=== PATIENT | female | born 1995 | race Caucasian/White ===

== ENCOUNTER 2018-08-08 17:40 | Emergency (ER) | payer OTHER ==
[~2018-08-08] VITALS: Ht 154.9 cm; Wt 56.2 kg
[2018-08-08 17:59] VITALS: Ht 154.9 cm; Wt 56.2 kg
[2018-08-08 19:38] LABS: BASOPHIL % 0.2 % (0-2); PLATELET COUNT 329 x10^3mcL (130-400); RED CELL DISTRIBUTION WIDTH 13.5 % (11.5-14.5)
[2018-08-08 19:49] LABS: microscopic required? YES; urine erythrocyte 1+ (NEGATIVE)
[2018-08-08 21:10] VITALS: BP 135/77
== END 2018-08-08 21:10 | disposition home or self-care (01) ==
LOC: ED 17:40
PROVIDERS: Emergency Medicine
DX: O20.0 Threatened abortion (principal)
CPT/HCPCS: 36415